=== PATIENT | male | born 1980 | race Caucasian/White ===

== ENCOUNTER 2019-05-15 16:59 | Emergency (ER) | payer BC ==
[2019-05-15] MEDS ORDERED: SODIUM CHLORIDE 0.9% 1,000 ML IV STA (17:09)
[2019-05-15] MEDS ORDERED: PANTOPRAZOLE 40 MG/10 ML VIAL IVP STA (17:09)
--- NOTE | 2019-05-15 17:34 | ED ---
General Adult HPI - General Chief complaint: Abdominal Pain Stated complaint: Stomach/back pain Time Seen by Provider: 05/15/19 17:05 Source: patient, family, RN notes reviewed, old records reviewed Mode of arrival: ambulatory - History of Present Illness Initial comments: 38-year-old male patient passed no history of GERD presents to ED chief complaint of epigastric abdominal pain. Patient reports his been ongoing for approximately 36 hours. Patient states that this feels same as the GERD has before, however normally resolves without intervention. Patient not take any antacids. Denies a history of pancreatitis, high blood pressure. Denies any other complaints at this time. Systemic: Pt denies fatigue, fever/chills, rash. Pt denies weakness, night sweats, weight loss. Neuro: Pt denies headache, visual disturbances, syncope or pre-syncope. HEENT: Pt denies ocular discharge or irritation, otalgia, rhinorrhea, pharyngitis or notable lymphadenopathy. Cardiopulmonary: Pt denies chest pain, SOB, heart palpitations, dyspnea on exertion. Abdominal/GI: Pt denies n/v/d. : Pt denies dysuria, burning w/ urination, frequency/urgency. Denies new onset urinary or bowel incontinence. MSK: Pt denies myalgia, loss of strength or function in extremities. Neuro: Pt denies new onset weakness, paresthesias. - Related Data Previous Rx's Medication Instructions Recorded Pantoprazole Sodium [Protonix] 20 mg PO Q24HR 14 Days #14 05/15/19 tablet. Allergies Allergy/AdvReac Type Severity Reaction Status Date / Time No Known Allergies Allergy Verified 05/15/19 17:04 Review of Systems ROS Statement: Those systems with pertinent positive or pertinent negative responses have been documented in the HPI. ROS Other: All systems not noted in ROS Statement are negative. Past Medical History Past Medical History: No Reported History History of Any Multi-Drug Resistant Organisms: None Reported Past Surgical History: No Surgical Hx Reported Past Psychological History: No Psychological Hx Reported Smoking Status: Never smoker Past Alcohol Use History: None Reported Past Drug Use History: None Reported General Exam - General Exam Comments Initial Comments: Constitutional: NAD, AOX3, Pt has pleasant affect. HEENT: NC/AT, trachea midline, neck supple, no lymphadenopathy. Posterior pharynx non erythematous, without exudates. External ears appear normal, without discharge. Mucous membranes moist. Eyes PERRLA, EOM intact. There is no scleral icterus. No pallor noted. Cardiopulmonary: RRR, no murmurs, rubs or gallops, no JVD noted. Lungs CTAB in anterior and posterior whitaker. No peripheral edema. Abdominal exam: Abdomen soft and non-distended. Abdomen mildly tender to palpation epigastric region, no other areas of abdominal tenderness. No pulsatile mass.. Bowel sounds active in LLQ. No hepatosplenomegaly. No ecchymosis Neuro: CN II-XII grossly intact. No nuchal rigidity. No raccon eyes, no dahl sign, no hemotympanum. No cervical spinal tenderness. MSK: No posterior calf tenderness bilaterally, homans sign negative bilaterally. Posterior tibialis and radial pulse +2 bilaterally, equal. Sensation intact in upper and lower extremities. Full active ROM in upper and lower extremities, 5/5 stregnth. Course Vital Signs 05/15/19 17:02 Temperature 97.8 F Pulse Rate 52 L Respiratory 18 Rate Blood Pressure 136/81 O2 Sat by Pulse 100 Oximetry Medical Decision Making - Medical Decision Making 38-year-old male patient passed no history of GERD presents to ED chief complaint of epigastric abdominal pain. Patient reports his been ongoing for approximately 36 hours. Patient states that this feels same as the GERD has before, however normally resolves without intervention. Patient not take any antacids. Denies a history of pancreatitis, high blood pressure. Denies any other complaints at this time. Patient also signs stable, afebrile. Physical exam displayed: Abdomen soft and non-distended. Abdomen mildly tender to palpation epigastric region, no other areas of abdominal tenderness. No pulsatile mass. Laboratory investigations were not impressive. KUB displayed no acute process. Patient improved with Protonix, GI cocktail. Patient experiencing gastritis. Patient will be discharged with Protonix, follow up with primary care provider, [facility] physician worsens. Case discussed with Dr. Sterling. - Lab Data Result diagrams: 05/15/19 17:29 05/15/19 17:29 Lab Results 05/15/19 05/15/19 05/15/19 Range/Units 17:29 17:29 17:29 WBC 8.1 (3.8-10.6) k/uL RBC 4.83 (4.30-5.90) m/uL Hgb 14.5 (13.0-17.5) gm/dL Hct 42.8 (39.0-53.0) % MCV 88.7 (80.0-100.0) fL MCH 30.0 (25.0-35.0) pg MCHC 33.9 (31.0-37.0) g/dL RDW 14.8 (11.5-15.5) % Plt Count 252 (150-450) k/uL Neutrophils % 56 % Lymphocytes % 32 % Monocytes % 6 % Eosinophils % 3 % Basophils % 1 % Neutrophils # 4.5 (1.3-7.7) k/uL Lymphocytes # 2.6 (1.0-4.8) k/uL Monocytes # 0.5 (0-1.0) k/uL Eosinophils # 0.3 (0-0.7) k/uL Basophils # 0.1 (0-0.2) k/uL Sodium 142 (137-145) mmol/L Potassium 3.6 (3.5-5.1) mmol/L Chloride 106 (98-107) mmol/L Carbon Dioxide 25 (22-30) mmol/L Anion Gap 11 mmol/L BUN 7 L (9-20) mg/dL Creatinine 0.78 (0.66-1.25) mg/dL Est GFR (CKD-EPI)AfAm >90 (>60 ml/min/1.73 sqM) Est GFR (CKD-EPI)NonAf >90 (>60 ml/min/1.73 sqM) Glucose 91 (74-99) mg/dL Plasma Lactic Acid Piter 1.2 (0.7-2.0) mmol/L Calcium 9.4 (8.4-10.2) mg/dL Total Bilirubin 1.5 H (0.2-1.3) mg/dL AST 21 (17-59) U/L ALT 34 (21-72) U/L Alkaline Phosphatase 69 (38-126) U/L Total Protein 7.4 (6.3-8.2) g/dL Albumin 4.5 (3.5-5.0) g/dL Lipase 63 (23-300) U/L Urine Color Urine Appearance (Clear) Urine pH (5.0-8.0) Ur Specific [place] (1.001-1.035) Urine Protein (Negative) Urine Glucose (UA) (Negative) Urine Ketones (Negative) Urine Blood (Negative) Urine Nitrite (Negative) Urine Bilirubin (Negative) Urine Urobilinogen (<2.0) mg/dL Ur Leukocyte Esterase (Negative) 05/15/19 Range/Units 17:29 WBC (3.8-10.6) k/uL RBC (4.30-5.90) m/uL Hgb (13.0-17.5) gm/dL Hct (39.0-53.0) % MCV (80.0-100.0) fL MCH (25.0-35.0) pg MCHC (31.0-37.0) g/dL RDW (11.5-15.5) % Plt Count (150-450) k/uL Neutrophils % % Lymphocytes % % Monocytes % % Eosinophils % % Basophils % % Neutrophils # (1.3-7.7) k/uL Lymphocytes # (1.0-4.8) k/uL Monocytes # (0-1.0) k/uL Eosinophils # (0-0.7) k/uL Basophils # (0-0.2) k/uL Sodium (137-145) mmol/L Potassium (3.5-5.1) mmol/L Chloride (98-107) mmol/L Carbon Dioxide (22-30) mmol/L Anion Gap mmol/L BUN (9-20) mg/dL Creatinine (0.66-1.25) mg/dL Est GFR (CKD-EPI)AfAm (>60 ml/min/1.73 sqM) Est GFR (CKD-EPI)NonAf (>60 ml/min/1.73 sqM) Glucose (74-99) mg/dL Plasma Lactic Acid Piter (0.7-2.0) mmol/L Calcium (8.4-10.2) mg/dL Total Bilirubin (0.2-1.3) mg/dL AST (17-59) U/L ALT (21-72) U/L Alkaline Phosphatase (38-126) U/L Total Protein (6.3-8.2) g/dL Albumin (3.5-5.0) g/dL Lipase (23-300) U/L Urine Color Yellow Urine Appearance Clear (Clear) Urine pH 7.0 (5.0-8.0) Ur Specific [place] 1.009 (1.001-1.035) Urine Protein Negative (Negative) Urine Glucose (UA) Negative (Negative) Urine Ketones 1+ H (Negative) Urine Blood Negative (Negative) Urine Nitrite Negative (Negative) Urine Bilirubin Negative (Negative) Urine Urobilinogen 2.0 (<2.0) mg/dL Ur Leukocyte Esterase Negative (Negative) Disposition Clinical Impression: Gastritis Disposition: HOME SELF-CARE Condition: Stable Instructions (If sedation given, give patient instructions): Gastritis (ED) Additional Instructions: Patient to adhere to previously discussed treatment plan and will take medication(s) as directed. Patient to follow up with PCP in 1-2 days. Patient to return to ED if symptoms do not improve. Take medication as directed. Follow up with primary care provider tomorrow. Return to ER if condition worsens. Prescriptions: Pantoprazole Sodium [Protonix] 20 mg PO Q24HR 14 Days #14 tablet.dr Is patient prescribed a controlled substance at d/c from ED?: No Referrals: Laina Morales MD [Primary Care Provider] - 1-2 days
[2019-05-15 17:45] LABS: Basophils # (A) 0.1 k/uL (0-0.2); Basophils % (A) 1 %; Eosinophils # (A) 0.3 k/uL (0-0.7); Eosinophils % (A) 3 %; HCT 42.8 % (39.0-53.0); HGB 14.5 gm/dL (13.0-17.5); Lymphocytes # (A) 2.6 k/uL (1.0-4.8); Lymphocytes % (A) 32 %; MCHC 33.9 g/dL (31.0-37.0); MCV 88.7 fL (80.0-100.0); Mean Platelet Volume 7.9; Monocytes # (A) 0.5 k/uL (0-1.0); Monocytes % (A) 6 %; Neutrophils # (A) 4.5 k/uL (1.3-7.7); Neutrophils % (A) 56 %; Platelet Count 252 k/uL (150-450); RBC 4.83 m/uL (4.30-5.90); RDW 14.8 % (11.5-15.5); WBC 8.1 k/uL (3.8-10.6)
[2019-05-15 17:55] LABS: Appearance,Urine Clear (Clear); Bilirubin,Urine Negative (Negative); Blood,Urine Negative (Negative); Color,Urine Yellow; Glucose,Urine (UA) Negative (Negative); Ketones,Urine 1+ (Negative); Leukocyte Esterase,Urine Negative (Negative); Nitrite,Urine Negative (Negative); Protein,Urine Negative (Negative); Specific Gravity,Urine 1.009 (1.001-1.035)
[2019-05-15 17:57] LABS: ALT 34 U/L (21-72); AST 21 U/L (17-59); African American GFR (CKD) >90 (>60 ml/min/1.73 sqM); Albumin 4.5 g/dL (3.5-5.0); Alkaline Phosphatase 69 U/L (38-126); Anion Gap 11 mmol/L; Blood Urea Nitrogen 7 mg/dL (9-20); Calcium 9.4 mg/dL (8.4-10.2); Carbon Dioxide 25 mmol/L (22-30); Chloride 106 mmol/L (98-107); Glucose 91 mg/dL (74-99); Potassium 3.6 mmol/L (3.5-5.1); Sodium 142 mmol/L (137-145); Total Bilirubin 1.5 mg/dL (0.2-1.3); Total Protein 7.4 g/dL (6.3-8.2)
--- NOTE | 2019-05-15 18:10 | XR ---
EXAMINATION TYPE: XR KUB DATE OF EXAM: 05/15/2019 COMPARISON: NONE HISTORY: Abdominal pain TECHNIQUE: 3 views upright FINDINGS: Bowel gas pattern is normal. There is no sign of intestinal obstruction or pneumoperitoneum . Fecal pattern is normal. Lung bases are clear. There is no evidence of a mass. There are no patholo gic calcifications over the kidneys. IMPRESSION: Nonacute abdomen.
[2019-05-15] MEDS ORDERED: MAG HYDROX/AL HYDROX/SIMETH 30 ML, HYOSCYAMINE ELIXIR 10 ML, CIMETIDINE HCL 300 MG, LID... PO STA ×4 (18:33)
--- NOTE | 2019-05-15 20:06 | CT ---
EXAMINATION TYPE: CT abdomen pelvis w con DATE OF EXAM: 05/15/2019 COMPARISON: None HISTORY: abdominal and flank pain CT DLP: 1432.6 mGycm Automated exposure control for dose reduction was used. TECHNIQUE: Helical acquisition of images was performed from the lung bases through the pelvis. CONTRAST: Performed without Oral Contrast and with IV Contrast, patient injected with 100 mL of Isovue 300. FINDINGS: Lung bases are clear. There is no pleural effusion. Heart size is normal. Liver spleen pancreas appear normal. Stomach appears normal. There is a large calcified gallstone. Bi le ducts are not dilated. There is no adrenal mass. Kidneys show satisfactory contrast opacification. There is no hydronephrosi s. Appendix appears normal. There is no retroperitoneal adenopathy. Ureters are not dilated. Bladder distends smoothly. There is no inguinal hernia. There is no free fluid in the pelvis. Lumbar vertebra have normal spacing and alignment. Posterior elements are intact. There is no josé miguel neyda fracture. Bony pelvis is intact. IMPRESSION: LARGE GALLSTONE. NO DILATED DUCTS. NO SIGN OF ACUTE ABDOMEN AND PELVIS.
--- NOTE | 2019-05-15 20:16 | ED ---
Medical Decision Making - Medical Decision Making Upon discharge patient stated that he is not feeling pain again. Patient was offered and accepted CAT scan abdomen and pelvis. CAT scan displayed large gallstone. No dilated ducts, no signs of acute cholecystitis. Patient will be discharged with general surgeon follow-up for possible biliary colic. - Lab Data Result diagrams: 05/15/19 17:29 05/15/19 17:29 Lab Results 05/15/19 05/15/19 05/15/19 Range/Units 17:29 17:29 17:29 WBC 8.1 (3.8-10.6) k/uL RBC 4.83 (4.30-5.90) m/uL Hgb 14.5 (13.0-17.5) gm/dL Hct 42.8 (39.0-53.0) % MCV 88.7 (80.0-100.0) fL MCH 30.0 (25.0-35.0) pg MCHC 33.9 (31.0-37.0) g/dL RDW 14.8 (11.5-15.5) % Plt Count 252 (150-450) k/uL Neutrophils % 56 % Lymphocytes % 32 % Monocytes % 6 % Eosinophils % 3 % Basophils % 1 % Neutrophils # 4.5 (1.3-7.7) k/uL Lymphocytes # 2.6 (1.0-4.8) k/uL Monocytes # 0.5 (0-1.0) k/uL Eosinophils # 0.3 (0-0.7) k/uL Basophils # 0.1 (0-0.2) k/uL Sodium 142 (137-145) mmol/L Potassium 3.6 (3.5-5.1) mmol/L Chloride 106 (98-107) mmol/L Carbon Dioxide 25 (22-30) mmol/L Anion Gap 11 mmol/L BUN 7 L (9-20) mg/dL Creatinine 0.78 (0.66-1.25) mg/dL Est GFR (CKD-EPI)AfAm >90 (>60 ml/min/1.73 sqM) Est GFR (CKD-EPI)NonAf >90 (>60 ml/min/1.73 sqM) Glucose 91 (74-99) mg/dL Plasma Lactic Acid Piter 1.2 (0.7-2.0) mmol/L Calcium 9.4 (8.4-10.2) mg/dL Total Bilirubin 1.5 H (0.2-1.3) mg/dL AST 21 (17-59) U/L ALT 34 (21-72) U/L Alkaline Phosphatase 69 (38-126) U/L Total Protein 7.4 (6.3-8.2) g/dL Albumin 4.5 (3.5-5.0) g/dL Lipase 63 (23-300) U/L Urine Color Urine Appearance (Clear) Urine pH (5.0-8.0) Ur Specific [place] (1.001-1.035) Urine Protein (Negative) Urine Glucose (UA) (Negative) Urine Ketones (Negative) Urine Blood (Negative) Urine Nitrite (Negative) Urine Bilirubin (Negative) Urine Urobilinogen (<2.0) mg/dL Ur Leukocyte Esterase (Negative) 05/15/19 Range/Units 17:29 WBC (3.8-10.6) k/uL RBC (4.30-5.90) m/uL Hgb (13.0-17.5) gm/dL Hct (39.0-53.0) % MCV (80.0-100.0) fL MCH (25.0-35.0) pg MCHC (31.0-37.0) g/dL RDW (11.5-15.5) % Plt Count (150-450) k/uL Neutrophils % % Lymphocytes % % Monocytes % % Eosinophils % % Basophils % % Neutrophils # (1.3-7.7) k/uL Lymphocytes # (1.0-4.8) k/uL Monocytes # (0-1.0) k/uL Eosinophils # (0-0.7) k/uL Basophils # (0-0.2) k/uL Sodium (137-145) mmol/L Potassium (3.5-5.1) mmol/L Chloride (98-107) mmol/L Carbon Dioxide (22-30) mmol/L Anion Gap mmol/L BUN (9-20) mg/dL Creatinine (0.66-1.25) mg/dL Est GFR (CKD-EPI)AfAm (>60 ml/min/1.73 sqM) Est GFR (CKD-EPI)NonAf (>60 ml/min/1.73 sqM) Glucose (74-99) mg/dL Plasma Lactic Acid Piter (0.7-2.0) mmol/L Calcium (8.4-10.2) mg/dL Total Bilirubin (0.2-1.3) mg/dL AST (17-59) U/L ALT (21-72) U/L Alkaline Phosphatase (38-126) U/L Total Protein (6.3-8.2) g/dL Albumin (3.5-5.0) g/dL Lipase (23-300) U/L Urine Color Yellow Urine Appearance Clear (Clear) Urine pH 7.0 (5.0-8.0) Ur Specific [place] 1.009 (1.001-1.035) Urine Protein Negative (Negative) Urine Glucose (UA) Negative (Negative) Urine Ketones 1+ H (Negative) Urine Blood Negative (Negative) Urine Nitrite Negative (Negative) Urine Bilirubin Negative (Negative) Urine Urobilinogen 2.0 (<2.0) mg/dL Ur Leukocyte Esterase Negative (Negative) Disposition Clinical Impression: Gastritis, Biliary colic Disposition: HOME SELF-CARE Condition: Stable Instructions (If sedation given, give patient instructions): Gastritis (ED), Low Fat Diet (ED) Additional Instructions: Patient to adhere to previously discussed treatment plan and will take medication(s) as directed. Patient to follow up with PCP in 1-2 days. Patient to return to ED if symptoms do not improve. Take medication as directed. Follow up with primary care provider tomorrow. Return to ER if condition worsens. Prescriptions: Pantoprazole Sodium [Protonix] 20 mg PO Q24HR 14 Days #14 tablet.dr Is patient prescribed a controlled substance at d/c from ED?: No Referrals: Laina Morales MD [Primary Care Provider] - 1-2 days Hansel Grace DO [Doctor of Osteopathic Medicine] - 1-2 days
[2019-05-15 20:33] VITALS: BP 126/76; PULSE 51; RESP 18; TEMP 98.1
== END 2019-05-15 20:25 | disposition home or self-care (01) ==
LOC: EC 16:59
DX: K29.70 Gastritis, unspecified, without bleeding (principal); K80.70 Calculus of gallbladder and bile duct without cholecystitis without obstruction
CPT/HCPCS: 36415; 80053; 83605; 83690; 85025; 81003; 74018; 74177; 99285; 96374; 96361; C9113; Q9967

== ENCOUNTER 2019-05-18 09:12 | Observation (INO) | payer BC ==
[2019-05-18] MEDS ORDERED: KETOROLAC 30 MG/ML 1 ML VIAL IVP STA (09:38)
[2019-05-18] MEDS ORDERED: SODIUM CHLORIDE 0.9% 1,000 ML IV STA (09:38)
--- NOTE | 2019-05-18 09:59 | ED ---
Abdominal Pain HPI <Trent Sheets - Last Filed: 05/18/19 10:48> - General Source: patient, RN notes reviewed Mode of arrival: ambulatory Limitations: no limitations <Israel Stephenson - Last Filed: 05/18/19 10:50> - General Chief Complaint: Abdominal Pain Stated Complaint: Gallstone Time Seen by Provider: 05/18/19 09:17 - History of Present Illness Initial Comments: 38-year-old male presents emergency Department chief complaint of abdominal pain. Patient states she's been having worsening pain last few days. Patient was prior to the emergency department found to have a large gallstone on CT. Patient states pain is worsening and is advised to return the emergency department. Patient denies any current vomiting but states that he's had intermittent nausea. Denies any fever, chills, chest pain or shortness breath. He states he always noticed that he had foods. Patient states his symptoms wor sen. (Israel Stephenson) - Related Data Home Medications Medication Instructions Recorded Confirmed Pantoprazole Sodium [Protonix] 20 mg PO PC-LUNCH 05/18/19 05/18/19 Allergies Allergy/AdvReac Type Severity Reaction Status Date / Time No Known Allergies Allergy Verified 05/18/19 09:49 Review of Systems ROS Other: All systems not noted in ROS Statement are negative. <Trent Sheest - Last Filed: 05/18/19 10:48> ROS Other: All systems not noted in ROS Statement are negative. <Israel Stephenson - Last Filed: 05/18/19 10:50> ROS Statement: Those systems with pertinent positive or pertinent negative responses have been documented in the HPI. Past Medical History Past Medical History: No Reported History History of Any Multi-Drug Resistant Organisms: None Reported Past Surgical History: Ear Surgery Additional Past Surgical History / Comment(s): foot surgery Past Psychological History: No Psychological Hx Reported Smoking Status: Never smoker Past Alcohol Use History: Rare Past Drug Use History: None Reported <Israel Stephenson - Last Filed: 05/18/19 10:50> General Exam Limitations: no limitations General appearance: alert, in no apparent distress Head exam: Present: atraumatic, normocephalic, normal inspection Eye exam: Present: normal appearance, PERRL, EOMI. Absent: scleral icterus, conjunctival injection, periorbital swelling ENT exam: Present: normal exam, normal oropharynx, mucous membranes moist Neck exam: Present: normal inspection, full ROM. Absent: tenderness, m eningismus, lymphadenopathy Respiratory exam: Present: normal lung sounds bilaterally. Absent: respiratory distress, wheezes, rales, rhonchi, stridor Cardiovascular Exam: Present: regular rate, normal rhythm, normal heart sounds. Absent: systolic murmur, diastolic murmur, rubs, gallop, clicks GI/Abdominal exam: Present: soft, tenderness (Moderate epigastric to right sided), normal bowel sounds. Absent: distended, guarding, rebound, rigid Back exam: Absent: CVA tenderness (R), CVA tenderness (L) Neurological exam: Present: alert Skin exam: Present: warm, dry, intact, normal color. Absent: rash <Israel Stephenson - Last Filed: 05/18/19 10:50> Course Vital Signs 05/18/19 09:14 Temperature 98.0 F Pulse Rate 49 L Respiratory 17 Rate Blood Pressure 129/83 O2 Sat by Pulse 99 Oximetry Medical Decision Making - Lab Data Result diagrams: 05/18/19 09:40 05/18/19 09:40 <Trent Sheets - Last Filed: 05/18/19 10:48> - Lab Data Result diagrams: 05/18/19 09:40 05/18/19 09:40 <Israel Stephenson - Last Filed: 05/18/19 10:50> - Medical Decision Making Case discussed with practitioner Israel. Chart and results reviewed. Case also discussed with Dr. Magana, covering for surgical call, who will admit. He does request antibiotics (Trent Sheets) 38-year-old male presented for abdominal pain gallstones. Patient found to have a gallstone in his neck of his gallbladder concerning for acute cholecystitis. Patient's case discussed with Dr. Price patient will be admitted. (Israel Stephenson) - Lab Data Lab Results 05/18/19 05/18/19 Range/Units 09:40 09:40 WBC 9.4 (3.8-10.6) k/uL RBC 5.10 (4.30-5.90) m/uL Hgb 15.3 (13.0-17.5) gm/dL Hct 45.2 (39.0-53.0) % MCV 88.7 (80.0-100.0) fL MCH 29.9 (25.0-35.0) pg MCHC 33.7 (31.0-37.0) g/dL RDW 15.4 (11.5-15.5) % Plt Count 237 (150-450) k/uL Neutrophils % 77 % Lymphocytes % 14 % Monocytes % 5 % Eosinophils % 2 % Basophils % 0 % Neutrophils # 7.2 (1.3-7.7) k/uL Lymphocytes # 1.3 (1.0-4.8) k/uL Monocytes # 0.5 (0-1.0) k/uL Eosinophils # 0.2 (0-0.7) k/uL Basophils # 0.0 (0-0.2) k/uL Sodium 142 (137-145) mmol/L Potassium 3.9 (3.5-5.1) mmol/L Chloride 106 (98-107) mmol/L Carbon Dioxide 21 L (22-30) mmol/L Anion Gap 15 mmol/L BUN 6 L (9-20) mg/dL Creatinine 0.86 (0.66-1.25) mg/dL Est GFR (CKD-EPI)AfAm >90 (>60 ml/min/1.73 sqM) Est GFR (CKD-EPI)NonAf >90 (>60 ml/min/1.73 sqM) Glucose 95 (74-99) mg/dL Calcium 10.0 (8.4-10.2) mg/dL Total Bilirubin 1.9 H (0.2-1.3) mg/dL AST 22 (17-59) U/L ALT 37 (21-72) U/L Alkaline Phosphatase 70 (38-126) U/L Total Protein 8.0 (6.3-8.2) g/dL Albumin 4.9 (3.5-5.0) g/dL Amylase 41 (30-110) U/L Lipase 57 (23-300) U/L Disposition <Trent Sheets - Last Filed: 05/18/19 10:48> <Israel Stephenson - Last Filed: 05/18/19 10:50> Clinical Impression: Cholecystitis, acute with cholelithiasis Disposition: ADMITTED IP TO THIS HOSP Condition: Fair Referrals: Laina Morales MD [Primary Care Provider] - 1-2 days
[2019-05-18 10:00] LABS: Basophils % (A) 0 %; Eosinophils # (A) 0.2 k/uL (0-0.7); Eosinophils % (A) 2 %; HCT 45.2 % (39.0-53.0); HGB 15.3 gm/dL (13.0-17.5); Lymphocytes # (A) 1.3 k/uL (1.0-4.8); Lymphocytes % (A) 14 %; MCH 29.9 pg (25.0-35.0); MCHC 33.7 g/dL (31.0-37.0); MCV 88.7 fL (80.0-100.0); Mean Platelet Volume 8.1; Monocytes # (A) 0.5 k/uL (0-1.0); Monocytes % (A) 5 %; Neutrophils # (A) 7.2 k/uL (1.3-7.7); Neutrophils % (A) 77 %; Platelet Count 237 k/uL (150-450); RDW 15.4 % (11.5-15.5); WBC 9.4 k/uL (3.8-10.6)
[2019-05-18 10:09] LABS: ALT 37 U/L (21-72); AST 22 U/L (17-59); African American GFR (CKD) >90 (>60 ml/min/1.73 sqM); Albumin 4.9 g/dL (3.5-5.0); Alkaline Phosphatase 70 U/L (38-126); Amylase 41 U/L (30-110); Anion Gap 15 mmol/L; Blood Urea Nitrogen 6 mg/dL (9-20); Carbon Dioxide 21 mmol/L (22-30); Chloride 106 mmol/L (98-107); Glucose 95 mg/dL (74-99); Potassium 3.9 mmol/L (3.5-5.1); Sodium 142 mmol/L (137-145); Total Bilirubin 1.9 mg/dL (0.2-1.3)
--- NOTE | 2019-05-18 10:38 | US ---
EXAMINATION TYPE: US gallbladder DATE OF EXAM: 05/18/2019 COMPARISON: CT 05/15/2019 CLINICAL HISTORY: Pain. CT showed gallstone. Pain. EXAM MEASUREMENTS: Liver Length: 16.1 cm Gallbladder Wall: 0.3 cm CBD: 0.5 cm Right Kidney: 11.4 x 5.3 x 5.3 cm Pancreas: Appears echogenic in appearance Liver: wnl Gallbladder: Gall bladder appears enlarged in size. Visual internal echoes seen throughout gallbladd er. Focal sparing vs pericholecystic fluid at GB/Liver. Large echogenic focus- 2.9 cm. Wall appear s upper limits of normal in size. Evidence for sonographic De Souza's sign: neg CBD: wnl Right Kidney: wnl IMPRESSION: Cholelithiasis, stone appears lodged in the gallbladder neck, correlate for cholecystitis . Correlate for hepatic steatosis. Hydropic gallbladder with possible tumefactive sludge, suggest eleazar gical consult.
[2019-05-18] MEDS ORDERED: PIPERACILLIN-TAZOBACTAM 3.375 GM in SODIUM CHLORIDE 0.9% 100 ML IVPB STA (10:49)
[2019-05-18] MEDS ORDERED: NALOXONE 0.4 MG/ML 1 ML VIAL IV PRN (10:50)
[2019-05-18] MEDS ORDERED: ONDANSETRON 4 MG/2 ML VIAL IVP PRN (10:50)
[2019-05-18] MEDS: SODIUM CHLORIDE 0.9% 1,000 ML IV SCH (11:16)
[2019-05-18 11:21] LABS: Appearance,Urine Clear (Clear); Bilirubin,Urine Negative (Negative); Blood,Urine Negative (Negative); Color,Urine Yellow; Glucose,Urine (UA) Negative (Negative); Hyaline Casts,Urine 2 /lpf (0-2); Ketones,Urine 4+ (Negative); Leukocyte Esterase,Urine Negative (Negative); Mucus,Urine Many /hpf; Nitrite,Urine Negative (Negative); PH, Urine 5.5 (5.0-8.0); Protein,Urine 1+ (Negative); RBC,Urine 1 /hpf (0-5); Specific Gravity,Urine 1.031 (1.001-1.035); Squamous Epithelial Cell,Urine <1 /hpf (0-4)
[2019-05-18 11:52] VITALS: BMI 30.3
[2019-05-18] MEDS: HYDROmorphone 1 MG/ML 1 ML SYRINGE IVP PRN (12:02)
--- NOTE | 2019-05-18 14:31 | P.GSHP ---
History of Present Illness H&P Date: 05/18/19 Chief Complaint: abdominal pain CHIEF COMPLAINT: Abdominal pain HISTORY OF PRESENT ILLNESS: This 38-year-old male who presents to emergency room with chief complaint of abdominal pain. Patient was recently evaluated in the emergency room on 05/15/2019 and had a CAT scan performed at that time revealing cholelithiasis. The patient was discharged home and instructed to follow up outpatient. Patient states his abdominal pain has continued since discharge from the emergency room a few days ago. Pain is mostly in epigastric region and radiates to his back. He reports some nausea. Denies emesis. Denies fever or chills. Denies diarrhea or constipation. PAST MEDICAL HISTORY: See list. PAST SURGICAL HISTORY: See list. SOCIAL HISTORY: No illicit drug use. REVIEW OF SYSTEMS: CONSTITUTIONAL: Denies fever or chills. HEENT: Denies blurred vision, vision changes, or eye pain. Denies hemoptysis CARDIOVASCULAR: Denies chest pain or pressure. RESPIRATORY: No shortness of breath. GASTROINTESTINAL: Refer to HPI for pertinent findings HEMATOLOGIC: Denies bleeding disorders. GENITOURINARY: Denies any blood in urine. SKIN: Denies pruitis. Denies rash. PHYSICAL EXAM: VITAL SIGNS: Reviewed. GENERAL: Well-developed in no acute distress. HEENT: No sclera icterus. Extraocular movements grossly intact. Moist buccal mucosa. Head is atraumatic, normocephalic. ABDOMEN: Soft. Nondistended. Mild tenderness upon palpation of the epigastric region. NEUROLOGIC: Alert and oriented. Cranial nerves II through XII grossly intact. LABORATORY DATA: WBC 9.4. Hemoglobin 15.3. Bilirubin 1.9. AST 22. ALT 37. IMAGING: Abdominal ultrasound: Cholelithiasis. Stone appears lodged in the gallbladder neck. Correlate for cholecystitis. Correlate for hepatic steatosis. Hydropic gallbladder with possible fumefactive sludge. ASSESSMENT: 1. Abdominal pain 2. Acute cholecystitis 3. Cholelithiasis PLAN: 1. Clear liquid diet. NPO after midnight. 2. Continue Zosyn 3. Repeat CBC and CMP in AM 4. Patient scheduled for laparoscopic cholecystectomy tomorrow with Dr. Price. Nurse practitioner note has been reviewed by physician. Signing provider agrees with the documented findings, assessment, and plan of care. Past Medical History Past Medical History: No Reported History Additional Past Medical History / Comment(s): Recently found he had gallstone History of Any Multi-Drug Resistant Organisms: None Reported Past Surgical History: Ear Surgery Additional Past Surgical History / Comment(s): Bilateral foot surgery for club feet, bilateral myringotomy/tubes and grafts over holes in eardrums. Past Anesthesia/Blood Transfusion Reactions: No Reported Reaction Smoking Status: Never smoker - Past Family History Father Additional Family Medical History / Comment(s): Father had a cholecystectomy. Mother Family Medical History: Cancer Additional Family Medical History / Comment(s): Mother of pancreatic cancer. Medications and Allergies Home Medications Medication Instructions Recorded Confirmed Type Pantoprazole Sodium [Protonix] 20 mg PO PC-LUNCH 05/18/19 05/18/19 History Allergies Allergy/AdvReac Type Severity Reaction Status Date / Time No Known Allergies Allergy Verified 05/18/19 09:49 Surgical - Exam Vital Signs Temp Pulse Resp BP Pulse Ox 98.0 F 49 L 17 129/83 99 05/18/19 09:14 05/18/19 09:14 05/18/19 09:14 05/18/19 09:14 05/18/19 09:14 Results - Labs 05/18/19 09:40 05/18/19 09:40 Abnormal Lab Results - Last 24 Hours (Table) 05/18/19 05/18/19 Range/Units 09:40 09:40 Carbon Dioxide 21 L (22-30) mmol/L BUN 6 L (9-20) mg/dL Total Bilirubin 1.9 H (0.2-1.3) mg/dL Urine Protein 1+ H (Negative) Urine Ketones 4+ H (Negative) Urine Mucus Many H (None) /hpf Diabetes panel 05/18/19 Range/Units 09:40 Sodium 142 (137-145) mmol/L Potassium 3.9 (3.5-5.1) mmol/L Chloride 106 (98-107) mmol/L Carbon Dioxide 21 L (22-30) mmol/L BUN 6 L (9-20) mg/dL Creatinine 0.86 (0.66-1.25) mg/dL Glucose 95 (74-99) mg/dL Calcium 10.0 (8.4-10.2) mg/dL AST 22 (17-59) U/L ALT 37 (21-72) U/L Alkaline Phosphatase 70 (38-126) U/L Total Protein 8.0 (6.3-8.2) g/dL Albumin 4.9 (3.5-5.0) g/dL Calcium panel 05/18/19 Range/Units 09:40 Calcium 10.0 (8.4-10.2) mg/dL Albumin 4.9 (3.5-5.0) g/dL Pituitary panel 05/18/19 Range/Units 09:40 Sodium 142 (137-145) mmol/L Potassium 3.9 (3.5-5.1) mmol/L Chloride 106 (98-107) mmol/L Carbon Dioxide 21 L (22-30) mmol/L BUN 6 L (9-20) mg/dL Creatinine 0.86 (0.66-1.25) mg/dL Glucose 95 (74-99) mg/dL Calcium 10.0 (8.4-10.2) mg/dL Adrenal panel 05/18/19 Range/Units 09:40 Sodium 142 (137-145) mmol/L Potassium 3.9 (3.5-5.1) mmol/L Chloride 106 (98-107) mmol/L Carbon Dioxide 21 L (22-30) mmol/L BUN 6 L (9-20) mg/dL Creatinine 0.86 (0.66-1.25) mg/dL Glucose 95 (74-99) mg/dL Calcium 10.0 (8.4-10.2) mg/dL Total Bilirubin 1.9 H (0.2-1.3) mg/dL AST 22 (17-59) U/L ALT 37 (21-72) U/L Alkaline Phosphatase 70 (38-126) U/L Total Protein 8.0 (6.3-8.2) g/dL Albumin 4.9 (3.5-5.0) g/dL
[2019-05-18] MEDS: HYDROmorphone 0.5 MG/0.5 ML SYRINGE IVP PRN ×3 (15:19→21:16)
[2019-05-18] MEDS: HEPARIN SODIUM,PORCINE 5,000 UNIT/ML 1 ML VIAL SQ SCH (16:50)
[2019-05-18] MEDS: PIPERACILLIN-TAZOBACTAM 3.375 GM in SODIUM CHLORIDE 0.9% 100 ML IVPB SCH (16:50)
--- NOTE | 2019-05-18 22:01 | CONS ---
CONSULTATION REASON FOR CONSULTATION: Advice regarding elevated bilirubin and other medical issues requested by Dr. Price. HISTORY OF PRESENT ILLNESS: This 38-year-old gentleman with a past medical history of no significant medical issues, history of bilateral club foot, being followed by Dr. Morales in the outpatient setting, was complaining of abdominal pain. The patient came to [facility] and admitted under Dr. Price. The gallbladder ultrasound showed evidence of cholelithiasis and possibly cholecystitis. The lab hensley, the bilirubin is 1.9. Other LFTs are within normal limits. CO2 is 21. UA noted. There is no history of fever, rigors or chills. No history of headache, loss of consciousness or seizures. PAST MEDICAL HISTORY: No significant cardiorespiratory illness. The patient had bilateral foot surgery. MEDICATIONS: Home medications are Protonix 20 mg a.c. lunch. ALLERGIES: None. FAMILY HISTORY: Family history of cancer, cholecystectomy. SOCIAL HISTORY: No history of smoking. Occasional alcohol intake. REVIEW OF SYSTEMS: ENT: No diminished vision. No diminished hearing. CARDIOVASCULAR: No angina or palpitations. RESPIRATIONS: No cough. GI as mentioned earlier. no dysuria. CENTRAL NERVOUS SYSTEM: No numbness or weakness. ALLERGY/IMMUNOLOGY: No asthma or hayfever. MUSCULOSKELETAL: As mentioned earlier. HEMATOLOGY/ONCOLOGY: No history of anemia. ENDOCRINE: No history of diabetes or hypothyroidism. CONSTITUTIONAL: As mentioned earlier. DERMATOLOGY: Negative. RHEUMATOLOGY negative. PSYCHIATRY as mentioned earlier. PHYSICAL EXAMINATION: Alert and oriented times three. Pulse 54, blood pressure 137/88, respiration 17, temperature 98.2, pulse ox 94% on room air. HEENT: Conjunctivae normal. NECK: No jugular venous distention. CARDIOVASCULAR: S1, S2. RESPIRATORY: Breath sounds diminished in the bases. No rhonchi. No crackles. ABDOMEN: Soft. Minimal discomfort in the right upper quadrant. Otherwise, no guarding. No rigidity. No mass palpable. No ascites. LEGS: No edema. No swelling. NERVOUS SYSTEM: Higher functions as mentioned earlier. Moves all 4 limbs. No focal motor or sensory deficits. LYMPHATICS: No lymph nodes palpable in the neck, axillae or groin. SKIN: No ulcer, rash or bleeding. JOINTS: No active deforming arthropathy. LABS: At this time shows WBC 9.4, hemoglobin 15.3, sodium 148, potassium 3.9. ASSESSMENT: 1. Acute cholelithiasis with possibly cholecystitis. 2. Elevated bilirubin with no evidence of extrahepatic biliary obstruction. 3. Decreased carbon dioxide. 5. History of bilateral club foot surgery. RECOMMENDATIONS AND DISCUSSION: In this 38-year-old gentleman who presented with multiple medical issues, at this time, I recommend to continue current medications, management and symptomatic treatment. Continue with DVT prophylaxis. Proton pump inhibitors. Resume the home medications. Empiric antibiotics. The patient may be asked to follow with Dr. Morales closely after discharge. Surgery is planning laparoscopic cholecystectomy. Further recommendations to follow. A copy of this dictation being forwarded to Dr. Morales who is the primary physician. Thank you Dr. Price for letting us participate in the care of this patient. MMSURINDERL / TABBYN: [id number] / MTDD
[2019-05-19] MEDS: HYDROmorphone 1 MG/ML 1 ML SYRINGE IVP PRN ×5 (00:25→10:28)
[2019-05-19] MEDS: PIPERACILLIN-TAZOBACTAM 3.375 GM in SODIUM CHLORIDE 0.9% 100 ML IVPB SCH ×4 (00:29→23:10)
[2019-05-19] MEDS: HEPARIN SODIUM,PORCINE 5,000 UNIT/ML 1 ML VIAL SQ SCH ×4 (00:29→23:10)
[2019-05-19] MEDS: SODIUM CHLORIDE 0.9% 1,000 ML IV SCH ×4 (01:26→19:31)
[2019-05-19 06:31] LABS: Basophils % (A) 0 %; Eosinophils # (A) 0.1 k/uL (0-0.7); Eosinophils % (A) 1 %; HCT 42.9 % (39.0-53.0); HGB 14.2 gm/dL (13.0-17.5); Lymphocytes # (A) 1.7 k/uL (1.0-4.8); Lymphocytes % (A) 17 %; MCH 29.8 pg (25.0-35.0); MCV 90.4 fL (80.0-100.0); Mean Platelet Volume 7.9; Monocytes # (A) 0.7 k/uL (0-1.0); Monocytes % (A) 7 %; Neutrophils # (A) 7.6 k/uL (1.3-7.7); Neutrophils % (A) 74 %; Platelet Count 240 k/uL (150-450); RBC 4.75 m/uL (4.30-5.90); RDW 15.1 % (11.5-15.5); WBC 10.2 k/uL (3.8-10.6)
[2019-05-19 06:38] LABS: ALT 38 U/L (21-72); AST 22 U/L (17-59); African American GFR (CKD) >90 (>60 ml/min/1.73 sqM); Albumin 4.3 g/dL (3.5-5.0); Alkaline Phosphatase 63 U/L (38-126); Anion Gap 13 mmol/L; Blood Urea Nitrogen 5 mg/dL (9-20); Calcium 9.2 mg/dL (8.4-10.2); Carbon Dioxide 23 mmol/L (22-30); Chloride 102 mmol/L (98-107); Glucose 92 mg/dL (74-99); Potassium 4.2 mmol/L (3.5-5.1); Sodium 138 mmol/L (137-145); Total Protein 7.1 g/dL (6.3-8.2)
[2019-05-19] MEDS: PANTOPRAZOLE 40 MG/10 ML VIAL IVP SCH (08:17)
--- NOTE | 2019-05-19 12:32 | PN ---
PROGRESS NOTE DATE OF SERVICE: 05/19/2019. This is a 38-year-old gentleman who was admitted with cholelithiasis and cholecystitis slated to have a laparoscopic cholecystectomy today. No chest pain. No palpitations. No fever. PHYSICAL EXAM: Alert and oriented x3, pulse 57, blood pressure 150/82, respirations 16, temperature 98.2, pulse ox 97% on room air skin: HEENT: Conjunctivae normal. NECK: No jugular venous distension. CARDIOVASCULAR SYSTEM: S1, S2, muffled. RESPIRATORY: Breath sounds diminished at the bases, no rhonchi, no crackles. ABDOMEN: Soft, minimal discomfort, otherwise, no tenderness, no guarding and no mass palpable. LEGS: No edema, no swelling.. NERVOUS SYSTEM: No focal deficits. LABS: At this time shows CBC within normal limits, sodium 130, potassium 4.2, bilirubin is 2, ASSESSMENT: 1. Acute cholelithiasis with possible cholecystitis. 2. Elevated bilirubin with no evidence of extrahepatic biliary obstruction. 3. Decreased CO2. 4. Mild hypertension. 5. History of bilateral foot surgery. RECOMMENDATIONS AND DISCUSSION: Recommend to continue current management and symptomatic treatment. Otherwise, at this time I recommend to continue the DVT prophylaxis. Otherwise, incentive spirometry. Closely follow with Surgery. Further recommendations to follow. MMODL / IJN: [id number] /
[2019-05-19] MEDS ORDERED: IV FLUID CONTINUATION 1,000 ML IV ONE (13:21)
[2019-05-19] MEDS ORDERED: DEXAMETHASONE SOD PHOSPHATE 10 MG/ML 1 ML VIAL IV ONE (13:53)
[2019-05-19] MEDS ORDERED: ONDANSETRON 4 MG/2 ML VIAL IVP ONE (13:54)
[2019-05-19] MEDS ORDERED: MIDAZOLAM 2 MG/2 ML VIAL ONE (14:10)
[2019-05-19] MEDS ORDERED: LIDOCAINE 1% INJ 10MG/ML (20 ML MDV) ONE (14:10)
[2019-05-19] MEDS ORDERED: fentaNYL (PF) 50 MCG/ML 2 ML AMP ONE (14:10)
[2019-05-19] MEDS ORDERED: HYDROmorphone (PF) 1 MG/ML ONE (14:10)
[2019-05-19] MEDS ORDERED: ROCURONIUM BROMIDE 10 MG/ML 10 ML VIAL IV ONE (14:10)
[2019-05-19] MEDS ORDERED: GLYCOPYRROLATE 0.2 MG/ML 2 ML VIAL ONE (14:10)
[2019-05-19] MEDS ORDERED: PROPOFOL 10 MG/ML 20 ML VIAL IV ONE (14:10)
[2019-05-19] MEDS ORDERED: SUCCINYLCHOLINE CHLORIDE 100 MG/5 ML SYR IV ONE (14:10)
[2019-05-19] MEDS ORDERED: NEOSTIGMINE 1 MG/ML 10 ML VIAL ONE (14:10)
[2019-05-19] MEDS ORDERED: KETOROLAC 30 MG/ML 1 ML VIAL ONE (14:10)
[2019-05-19] MEDS ORDERED: BUPIVACAIN-EPI 0.25%-1:200,000 30 ML VIAL SQ ONE (14:27)
[2019-05-19] MEDS ORDERED: LACTATED RINGERS 1,000 ML IV ONE (14:48)
--- NOTE | 2019-05-19 15:14 | P.OP ---
Date of Procedure: 05/19/19 Preoperative Diagnosis: Acute cholecystitis Postoperative Diagnosis: Acute cholecystitis Cholelithiasis Procedure(s) Performed: Laparoscopic cholecystectomy Anesthesia: ANDI Surgeon: Andrew Price Estimated Blood Loss (ml): 30 Pathology: other (Gallbladder) Condition: stable Disposition: PACU Description of Procedure: The patient was placed on the operating table. The patient received a general endotracheal tube anesthesia. The patients abdomen was prepped and draped in the usual sterile fashion. Through an infraumbilical stab incision, the fascia of the anterior abdominal wall was grasped with a pair of Kochers and then the Veress needle was placed in the peritoneal cavity. Position of the Veress needle was confirmed with positive drop test. The abdomen was then insufflated. After adequate insufflation, the 10 mm trocar was placed in the peritoneal cavity. Following this the laparoscope was placed in the peritoneal cavity. The patient was placed in the head-up, right side up position and then a 5 mm trocar was placed in the right lateral and right subcostal position under direct visualization. A 8 mm trocar was placed in the epigastric position. The gallbladder was very inflamed. I was unable to grasp the gallbladder. At this point using the Harmonic scissors opening was made on the dome of the gallbladder and the gallbladder was aspirated. The gallbladder was grasped in the fundus and infundibulum. Traction on the gallbladder was placed in the lateral and the cephalad positions. The triangle of Calot was visualized.. The cystic duct was bluntly dissected until the union of the cystic duct and common bile duct was seen. A critical view of safety was achieved. The cystic duct was then ligated with a 2-0 Ethibond suture and the timeout device. The cystic duct was then divided and sealed with the Harmonic scissors. A PDS Endoloop was then placed around the cystic duct stump. The cystic artery divided and sealed with the Harmonic scissors. The gallbladder was then removed from the liver bed using Harmonic scissors. The gallbladder was placed in Endo Catch bag The gallbladder was then extracted through the epigastric port site. The epigastric port site was lengthened approximately 2 inches in order to get the enlarged gallbladder out Operative field was checked for any bleeding spots and Harmonic scissors was used to coagulate the liver bed. The abdomen was irrigated. The trocars were removed. The skin was closed using interrupted 3-0 Vicryl suture. Dermabond dressing were applied. The patient tolerated the procedure well.
[2019-05-19] MEDS: HYDROmorphone 0.5 MG/0.5 ML SYRINGE IVP PRN ×2 (18:41→23:15)
[2019-05-20 06:23] LABS: ALT 59 U/L (21-72); AST 43 U/L (17-59); African American GFR (CKD) >90 (>60 ml/min/1.73 sqM); Albumin 4.1 g/dL (3.5-5.0); Alkaline Phosphatase 58 U/L (38-126); Anion Gap 10 mmol/L; Blood Urea Nitrogen 9 mg/dL (9-20); Calcium 9.7 mg/dL (8.4-10.2); Carbon Dioxide 24 mmol/L (22-30); Chloride 103 mmol/L (98-107); Glucose 152 mg/dL (74-99); Potassium 4.8 mmol/L (3.5-5.1); Sodium 137 mmol/L (137-145); Total Bilirubin 1.4 mg/dL (0.2-1.3); Total Protein 6.9 g/dL (6.3-8.2)
[2019-05-20 07:26] VITALS: BP 127/76; PULSE 81; RESP 18; TEMP 98.2
[2019-05-20] MEDS: PANTOPRAZOLE 40 MG/10 ML VIAL IVP SCH (08:13)
[2019-05-20] MEDS: PIPERACILLIN-TAZOBACTAM 3.375 GM in SODIUM CHLORIDE 0.9% 100 ML IVPB SCH (08:13)
[2019-05-20] MEDS: HEPARIN SODIUM,PORCINE 5,000 UNIT/ML 1 ML VIAL SQ SCH (08:16)
--- NOTE | 2019-05-20 11:23 | P.DS ---
Providers Date of admission: 05/18/19 10:57 Expected date of discharge: 05/20/19 Attending physician: Andrew Price Consults: 05/18/19 14:26 Consult Physician Routine Consulting Provider: Stephenie Vieira Consult Reason/Comments: medical management Do you want consulting provider notified?: Already Contacted Primary care physician: Andrew [facility] Course: 38-year-old male who presents to emergency room with chief complaint of abdominal pain. Patient was found to have acute cholecystitis. He underwent laparoscopic cholecystectomy with Dr. Price. Patient is doing well postoperatively without any immediate complications. Vital signs have been stable. Pain is controlled on oral medications. Tolerating diet without nausea or vomiting. He is stable for discharge home today. Please see EMR for further hospital course details. Discharge diagnosis 1. Abdominal pain 2. Acute cholecystitis 3. Cholelithiasis Nurse practitioner note has been reviewed by physician. Signing provider agrees with the documented findings, assessment, and plan of care. Patient Condition at Discharge: Stable Plan - Discharge Summary Discharge Rx Participant: No New Discharge Prescriptions: New Hydrocodone/Acetaminophen [Mesa 5-325] 1 tab PO Q6HR PRN 3 Days #12 tab PRN Reason: Pain No Action Pantoprazole Sodium [Protonix] 20 mg PO PC-LUNCH Discharge Medication List Pantoprazole Sodium [Protonix] 20 mg PO PC-LUNCH 05/18/19 [History] Hydrocodone/Acetaminophen [Mesa 5-325] 1 tab PO Q6HR PRN 3 Days #12 tab 05/20/19 [Rx] Follow up Appointment(s)/Referral(s): Laina Morales MD [Primary Care Provider] - 1-2 days Andrew Price MD [STAFF PHYSICIAN] - 1 Week Activity/Diet/Wound Care/Special Instructions: No driving while taking [place] No lifting over 10 pounds You may shower. No soaking or tub baths Very light activity until you are reevaluated at your follow up appointment with your surgeon
--- NOTE | 2019-05-20 13:35 | PN ---
PROGRESS NOTE DATE OF SERVICE: 05/20/2019 This 38-year-old gentleman who was admitted with acute cholelithiasis and cholecystitis, had a laparoscopic cholecystectomy. Patient improving significantly. No chest pain or palpitations. No fever. PHYSICAL EXAMINATION: On exam, alert and oriented x3. The pulse is 81, blood pressure 127/76, respiration 18, temperature 98.2, pulse ox 95% on room air. HEENT: Conjunctivae normal. NECK: No jugular venous distention. CARDIOVASCULAR: S1, S2 muffled. RESPIRATORY: Breath sounds diminished at the bases. No rhonchi, no crackles. ABDOMEN: Soft, status post surgery. NERVOUS SYSTEM: No focal deficits. LABS: Bilirubin is 1.4. ASSESSMENT: 1. Acute cholelithiasis with cholecystitis, status post laparoscopic cholecystectomy. 2. Elevated bilirubin with no evidence of extrahepatic biliary obstruction. 3. Decreased CO2. 4. Mild hypertension. 5. History of bilateral foot surgery. RECOMMENDATIONS AND DISCUSSION: Recommend to continue current medications, continue symptomatic treatment. Otherwise, incentive spirometry, DVT prophylaxis. Follow up closely with Dr. Morales and monitor closely. Otherwise rest of the recommendations per Surgery. Further recommendations to follow. MMODL / IJN: [id number] /
== END 2019-05-20 12:55 | disposition home or self-care (01) ==
LOC: EC 09:12 → 1SOBS 10:57
PROVIDERS: ADMIT Surgery; ATTEND Surgery
DX: K80.12 Calculus of gallbladder with acute and chronic cholecystitis without obstruction (principal); I10 Essential (primary) hypertension; R79.81 Abnormal blood-gas level; K76.0 Fatty (change of) liver, not elsewhere classified; K82.1 Hydrops of gallbladder; Z79.899 Other long term (current) drug therapy; Z80.0 Family history of malignant neoplasm of digestive organs; Z83.79 Family history of other diseases of the digestive system
CPT/HCPCS: 36415; 76705; 80053; 81001; 82150; 83690; 85025; 87040; 88304; 96374; 99285

== ENCOUNTER → 2023-10-14 | Outpatient (CLI) | payer OTHER | END | disposition home or self-care (01) | LOC: LABWHC1 15:37 | PROVIDERS: ATTEND Otolaryngology | DX: J30.89 Other allergic rhinitis (principal) | CPT/HCPCS: 36415 ==